=== PATIENT | male | born 1960 | race Caucasian/White ===

== ENCOUNTER 2021-04-08 13:30 | Outpatient (CLI) | payer OTHER, SELFPAY ==
--- NOTE | ~2021-04-08 | XR_ITS ---
EXAMINATION: XR shoulder LT min 2V DATE: 04/08/2021 14:25 INDICATION: Left shoulder pain. TECHNIQUE: 4 views of left shoulder were obtained. COMPARISON: None. FINDINGS: Bone alignment is normal. No acute fracture. There is an old healed fracture of left clavic le. There is advanced osteoarthritis of glenohumeral joint and moderate osteoarthritis of the acromio clavicular joint. There is a loose body in subacromial/subdeltoid bursa. IMPRESSION: 1. Polyarticular osteoarthritis. 2. Loose body in subacromial/subdeltoid bursa. Reviewed, dictated and finalized at location A.
--- NOTE | ~2021-04-08 | CT_ITS ---
EXAMINATION:CT lung screening DATE: 04/08/2021 14:18 INDICATION: Personal history of tobacco dependence. Current smoker with 30 pack year history. TECHNIQUE: Computed tomography (CT) of the chest was performed without intravenous contrast. Automate d exposure control and iterative reconstruction technique were employed. The dose-length product (DLP ) was 192.97 mGy-cm. COMPARISON: None. FINDINGS: The lungs demonstrate minimal atelectasis. There are 4 mm and 3 mm nodules in lingula. Ther e is a 4 mm nodule in right upper lobe. No pleural effusion. The heart size is normal. There are gayatri nary artery calcifications. There are calcifications of the aortic valve. No pericardial effusion. Ca lcified right hilar lymph nodes are consistent with old granulomatous disease. There is diffuse hepat ic steatosis. There are masses in the adrenal glands measuring low-attenuation measuring up to 1.9 cm on the left, consistent with adenomas. There is severe cervical and thoracic spondylosis. There is m ild chronic anterior wedging of multiple vertebral bodies. IMPRESSION: 1. Lung-RADS category 2: Benign appearance or behavior. Continue annual screening with noncontrast lo w-dose chest CT in 12 months. Reviewed, dictated and finalized at location A. IMPRESSION: 1. Lung-RADS category 2: Benign appearance or behavior. Continue annual screeni ng with noncontrast low-dose chest CT in 12 months.
--- NOTE | ~2021-04-08 | XR_ITS ---
EXAMINATION: XR ankle LT min 3V DATE: 04/08/2021 14:25 INDICATION: Left ankle pain. TECHNIQUE: 4 views of left ankle were obtained. COMPARISON: None. FINDINGS: There is varus angulation at the ankle. No fracture. There is heterotopic ossification dist al to medial malleolus. There is advanced osteoarthritis of the ankle joint with bone volume loss of tibial plafond. There is mild midfoot osteoarthritis. There is an enthesophyte at plantar aspect of c alcaneal tuberosity. IMPRESSION: 1. Advanced ankle joint osteoarthritis. Reviewed, dictated and finalized at location A.
--- NOTE | ~2021-04-08 | US_ITS ---
EXAMINATION: US art doppler w press LE DATE: 04/08/2021 14:34 CDT INDICATION: Bilateral lower extremity pain TECHNIQUE: Segmental pressures and plethysmographic and Doppler waveforms of the brachial and lower e xtremity arteries were obtained. COMPARISON: None. FINDINGS: Right and left brachial artery pressures of 150 mm Hg and 159 mm Hg, respectively, are concordant (no rmal difference <= 30 mmHg). The right high-thigh pressure index could not be measured. The right ankle-brachial index (JESS) is 1. 08 (normal >= 0.9-1.0). The right great toe-brachial index (TBI) is 0.81 (normal >= 0.60). The right lower extremity segmental pressure gradients are unremarkable (normal gradients <= 20-30 mmHg between adjacent levels on the same leg or the same levels on the two legs). Arterial Doppler waveforms are biphasic and triphasic. The left high-thigh pressure index is 1.09. The left JESS is 1.03. The left TBI is 0.67. The left lowe r extremity segmental pressure gradients are normal. Arterial Doppler waveforms are predominantly bip hasic. IMPRESSION: 1. Normal bilateral ankle and toe brachial indices. Reviewed, dictated and finalized at location B.
--- NOTE | ~2021-04-08 | XR_ITS ---
EXAMINATION: XR chest 2V DATE: 04/08/2021 14:25 INDICATION: Personal history of tobacco dependence. Shoulder pain. TECHNIQUE: Frontal and lateral views of the chest were obtained. COMPARISON: Chest CT 04/08/2021 FINDINGS: The chest demonstrates clear lungs without pneumonia, pleural effusion, or pneumothorax. Th e heart size is normal. IMPRESSION: 1. No acute cardiopulmonary disease. Reviewed, dictated and finalized at location A.
== END 2021-04-08 13:31 | disposition home or self-care (01) ==
LOC: ANHIMG 13:35
PROVIDERS: PCP Emergency Medicine; Visit Provider Emergency Medicine
DX: Z12.2 Encounter for screening for malignant neoplasm of respiratory organs (principal); Z87.891 Personal history of nicotine dependence; M25.572 Pain in left ankle and joints of left foot; M25.512 Pain in left shoulder; M19.072 Primary osteoarthritis, left ankle and foot; M19.012 Primary osteoarthritis, left shoulder; M24.012 Loose body in left shoulder
CPT/HCPCS: 71046; 71271; 73030; 73610; 93923

== ENCOUNTER 2021-04-23 07:45 | Outpatient (CLI) | payer OTHER, SELFPAY ==
--- NOTE | ~2021-04-23 | US_ITS ---
EXAMINATION: US right upper quadrant DATE: 04/23/2021 08:12 INDICATION: Hepatitis C TECHNIQUE: Multiple grayscale and Doppler ultrasound images of the abdomen were obtained. COMPARISON: None available FINDINGS: Bowel gas obscures visualization of the pancreas. The visualized portions of the pancreas a re unremarkable. The liver demonstrates increased echogenicity, heterogenous echotexture, and decreas ed through transmission. No surface nodularity. Normal hepatopetal flow in the main portal vein. The gallbladder is normal with no abnormal wall thickening, pericholecystic fluid or stones. The normal c ommon bile duct measures 6 mm. There was no sonographic Haines sign. IMPRESSION: 1. Diffuse hepatic steatosis. Reviewed, dictated and finalized at location A.
== END 2021-04-23 07:46 | disposition home or self-care (01) ==
PROVIDERS: PCP Emergency Medicine; Visit Provider Emergency Medicine
DX: B19.20 Unspecified viral hepatitis C without hepatic coma (principal); K76.0 Fatty (change of) liver, not elsewhere classified
CPT/HCPCS: 76705

== ENCOUNTER 2022-04-14 07:34 | Outpatient (CLI) | payer OTHER, SELFPAY ==
--- NOTE | ~2022-04-14 | CT_ITS ---
EXAMINATION:CT lung screening DATE: 04/14/2022 07:55 INDICATION: Personal history of tobacco dependence. Current smoker with 30 pack year history. TECHNIQUE: Computed tomography (CT) of the chest was performed without intravenous contrast. Automate d exposure control and iterative reconstruction technique were employed. The dose-length product (DLP ) was 204.60 mGy-cm. COMPARISON: Chest CT 04/08/2021 FINDINGS: There is mild scarring in paraspinal right lower lobe. There is mild atelectasis bilaterall y. There is a 3 mm nodule in right upper lobe. There is a 3 mm nodule at left major fissure. No pleur al effusion. The heart size is normal. There are coronary artery calcifications. There are calcificat ions of aortic valve. No pericardial effusion. There is diffuse hepatic steatosis. Again seen are mas ses in the adrenal glands measuring low attenuation measuring up to 1.9 cm on the left, consistent wi th adenomas. There is severe cervical and thoracic spondylosis. IMPRESSION: 1. Lung-RADS category 2: Benign appearance or behavior. Continue annual screening with noncontrast lo w-dose chest CT in 12 months. Reviewed, dictated and finalized at location B. IMPRESSION: 1. Lung-RADS category 2: Benign appearance or behavior. Continue annual screeni ng with noncontrast low-dose chest CT in 12 months.
== END 2022-04-14 07:35 | disposition home or self-care (01) ==
LOC: ANHIMG 07:39
PROVIDERS: PCP Emergency Medicine; Visit Provider Emergency Medicine
DX: Z12.2 Encounter for screening for malignant neoplasm of respiratory organs (principal); Z87.891 Personal history of nicotine dependence
CPT/HCPCS: 71271